=== PATIENT | male | born 1995 | race Hispanic/Latino ===

== ENCOUNTER 2021-10-31 22:59 | Emergency (ER) | payer SELFPAY ==
[2021-10-31 23:29] LABS: Urine Blood Negative (Negative); Urine Glucose Negative (Negative); Urine Protein 2+ (Negative); Urine Specific Gravity >=1.030 (1.005-1.030); Urine pH 5.5 (5.0-7.0)
[2021-11-01] MEDS ORDERED: LIDOCAINE 1% MPF 2 ML AMPULE ONE (00:43)
--- NOTE | 2021-11-01 00:43 | ER ---
Nurse's Notes [facility] Name: Kian Mckeon Age: 26 yrs Sex: Male : 1995 Arrival Date: 10/31/2021 Time: 23:00 Bed 15 Private MD: Diagnosis: Nonspecific urethritis-Possible STD exposure Presentation: 10/31 23:13 Chief complaint: Patient states: When I urinate I get discomfort and pain. Coronavirus vc1 screen: Vaccine status: Patient reports being unvaccinated. At this time, the client does not indicate any symptoms associated with coronavirus-19. Ebola Screen: No symptoms or risks identified at this time. Initial Sepsis Screen: Does the patient meet any 2 criteria? No. Patient's initial sepsis screen is negative. Does the patient have a suspected source of infection? No. Patient's initial sepsis screen is negative. Risk Assessment: Do you want to hurt yourself or someone else? Patient reports no desire to harm self or others. Onset of symptoms was October 29, 2021. 23:13 Method Of Arrival: Ambulatory vc1 23:13 Acuity: PEDRO 4 vc1 Triage Assessment: 23:14 General: Appears in no apparent distress. comfortable, Behavior is calm, cooperative, vc1 appropriate for age. Pain: Complains of pain in meatus Pain does not radiate. Pain at worst was 6 out of 10 on a pain scale. Aggravated by Urination. : Reports burning with urination, urinary frequency, Denies discharge. Historical: - Allergies: 23:14 No Known Allergies; vc1 - Home Meds: 23:14 None [Active]; vc1 - PMHx: 23:14 None; vc1 - PSHx: 23:14 None; vc1 - Immunization history:: Adult Immunizations up to date, Client reports having NOT received the Covid vaccine. Flu vaccine is not up to date. - Social history:: Smoking status: Patient denies any tobacco usage or history of. Screenin/12 01:11 Abuse screen: Denies threats or abuse. Nutritional screening: No deficits noted. mk Tuberculosis screening: No symptoms or risk factors identified. Fall Risk No fall in past 12 months (0 pts). No secondary diagnosis (0 pts). No IV (0 pts). Ambulatory Aid- None/Bed Rest/Nurse Assist (0 pts). Gait- Normal/Bed Rest/Wheelchair (0 pts) Mental Status- Oriented to own ability (0 pts). Total Craven Fall Scale indicates No Risk (0-24 pts). Assessment: 00:03 General: Appears in no apparent distress. Behavior is calm, cooperative. Pain: Denies mk pain. Neuro: Level of Consciousness is awake, alert, obeys commands, Oriented to person, place, time, situation, Ink Blender are equal bilaterally Moves all extremities. Gait is steady. Cardiovascular: Heart tones S1 S2 present Capillary refill < 3 seconds in bilateral fingers toes Clubbing of nail beds is absent JVD is absent Patient's skin is warm and dry. Pulses are 3+ in right radial artery, right dorsalis pedis artery, left radial artery and left dorsalis pedis artery Rhythm is regular. Respiratory: Airway is patent Trachea midline Respiratory effort is even, unlabored, Respiratory pattern is regular, symmetrical, Breath sounds are clear. GI: Abdomen is non-distended, Bowel sounds present X 4 quads. : Urine is Reports burning with urination, since days. Derm: Skin is intact, is healthy with good turgor. Musculoskeletal: Circulation, motion, and sensation intact. Capillary refill < 3 seconds, in bilateral fingers. toes. Range of motion: intact in all extremities. 01:00 Reassessment: No changes from previously documented assessment. Patient and/or family mk updated on plan of care and expected duration. Pain level reassessed. Patient is alert, oriented x 3, equal unlabored respirations, skin warm/dry/pink. Vital Signs: 10/31 23:13 BP 138 / 88; Pulse 98; Resp 18; Temp 98.1(TE); Pulse Ox 99% on R/A; Weight 90.72 kg; vc1 Height 5 ft. 7 in. (170.18 cm); Pain 02/27; 11/01 00:03 BP 138 / 92; Pulse 74; Resp 18; Pulse Ox 98% on R/A; mk 10/31 23:13 Body Mass Index 31.32 (90.72 kg, 170.18 cm) vc1 Yolanda Coma Score: 00:03 Eye Response: spontaneous(4). Verbal Response: oriented(5). Motor Response: obeys commands(6). Total: 15. ED Course: 10/31 23:00 Patient arrived in ED. kc5 23:14 Triage completed. vc1 23:16 Arm band placed on left wrist. vc1 23:30 Pulse ox on. NIBP on. 11/01 00:26 Bao Chapman MD is Attending Physician. mh7 00:36 Lacey Ignacio, RN is Primary Nurse. mk 01:12 No provider procedures requiring assistance completed. Patient did not have IV access mk during this emergency room visit. 01:13 Patient has correct armband on for positive identification. Allergy band placed. Placed mk in gown. Bed in low position. Side rails up X 1. Administered Medications: 00:40 Drug: Rocephin (cefTRIAXone) 500 mg Route: IM; Site: right deltoid; mk 01:13 Follow up: Response: No adverse reaction mk 00:40 Drug: AZITHromycin 1 grams Route: PO; mk 01:13 Follow up: Response: No adverse reaction mk Outcome: 00:42 Discharge ordered by . 7 01:12 Discharged to home 01:12 Condition: stable 01:12 Discharge instructions given to patient, Instructed on discharge instructions. 01:19 Patient left the ED. Signatures: Bao Chapman MD MD Lynnette Sylvester [facility] Lacey Ignacio, RN RN Nina Jimenes RN RN vc1
--- NOTE | 2021-11-01 00:43 | EDPHYS ---
Physician Documentation [facility] Name: Kina Mckeon Age: 26 yrs Sex: Male : 1995 Arrival Date: 10/31/2021 Time: 23:00 Bed 15 Private MD: ED Physician Bao Chapman HPI: 11/01 00:35 This 26 yrs old Male presents to ER via Ambulatory with complaints of Urinary mh7 Problem. 00:35 The patient presents with a possible STD exposure, symptoms include dysuria, yellow mh7 penile discharge. Onset: The symptoms/episode began/occurred 3 day(s) ago. Modifying factors: The symptoms are alleviated by nothing, the symptoms are aggravated by nothing. Associated signs and symptoms: Pertinent positives: dysuria, Pertinent negatives: abdominal pain, constipation, diarrhea, fever, hematuria, nausea, vomiting. Severity of symptoms: At their worst the symptoms were mild, 2 day(s) ago, in the emergency department the symptoms are unchanged. Historical: - Allergies: 10/31 23:14 No Known Allergies; vc1 - Home Meds: 23:14 None [Active]; vc1 - PMHx: 23:14 None; vc1 - PSHx: 23:14 None; vc1 - Immunization history:: Adult Immunizations up to date, Client reports having NOT received the Covid vaccine. Flu vaccine is not up to date. - Social history:: Smoking status: Patient denies any tobacco usage or history of. ROS: 11/01 00:35 Constitutional: Negative for fever, chills, and weight loss, Eyes: Negative for injury, mh7 pain, redness, and discharge, ENT: Negative for injury, pain, and discharge, Neck: Negative for injury, pain, and swelling, Cardiovascular: Negative for chest pain, palpitations, and edema, Respiratory: Negative for shortness of breath, cough, wheezing, and pleuritic chest pain, Abdomen/GI: Negative for abdominal pain, nausea, vomiting, diarrhea, and constipation, Back: Negative for injury and pain, MS/Extremity: Negative for injury and deformity, Skin: Negative for injury, rash, and discoloration, Neuro: Negative for headache, weakness, numbness, tingling, and seizure, Psych: Negative for depression, anxiety, suicide ideation, homicidal ideation, and hallucinations, Allergy/Immunology: Negative for hives, rash, and allergies, Endocrine: Negative for neck swelling, polydipsia, polyuria, polyphagia, and marked weight changes, Hematologic/Lymphatic: Negative for swollen nodes, abnormal bleeding, and unusual bruising. Exam: 00:35 Constitutional: This is a well developed, well nourished patient who is awake, alert, mh7 and in no acute distress. Head/Face: Normocephalic, atraumatic. Eyes: Pupils equal round and reactive to light, extra-ocular motions intact. Lids and lashes normal. Conjunctiva and sclera are non-icteric and not injected. Cornea within normal limits. Periorbital areas with no swelling, redness, or edema. Neck: Trachea midline, no thyromegaly or masses palpated, and no cervical lymphadenopathy. Supple, full range of motion without nuchal rigidity, or vertebral point tenderness. No Meningismus. Chest/axilla: Normal chest wall appearance and motion. Nontender with no deformity. No lesions are appreciated. Cardiovascular: Regular rate and rhythm with a normal S1 and S2. No gallops, murmurs, or rubs. Normal PMI, no JVD. No pulse deficits. Respiratory: Lungs have equal breath sounds bilaterally, clear to auscultation and percussion. No rales, rhonchi or wheezes noted. No increased work of breathing, no retractions or nasal flaring. Abdomen/GI: Soft, non-tender, with normal bowel sounds. No distension or tympany. No guarding or rebound. No evidence of tenderness throughout. Back: No spinal tenderness. No costovertebral tenderness. Full range of motion. Skin: Warm, dry with normal turgor. Normal color with no rashes, no lesions, and no evidence of cellulitis. MS/ Extremity: Pulses equal, no cyanosis. Neurovascular intact. Full, normal range of motion. Neuro: Awake and alert, GCS 15, oriented to person, place, time, and situation. Cranial nerves II-XII grossly intact. Motor strength 5/5 in all extremities. Sensory grossly intact. Cerebellar exam normal. Normal gait. Psych: Awake, alert, with orientation to person, place and time. Behavior, mood, and affect are within normal limits. 00:35 : CVA tenderness, is absent, Male external genitalia: Patient is not circumisioned. penile discharge, white, Bladder: is normal, Sexual behavior: the patient is sexually active, and reports multiple partners. Vital Signs: 10/31 23:13 BP 138 / 88; Pulse 98; Resp 18; Temp 98.1(TE); Pulse Ox 99% on R/A; Weight 90.72 kg; vc1 Height 5 ft. 7 in. (170.18 cm); Pain 6/10; 11/01 00:03 BP 138 / 92; Pulse 74; Resp 18; Pulse Ox 98% on R/A; mk 10/31 23:13 Body Mass Index 31.32 (90.72 kg, 170.18 cm) vc1 Marion Coma Score: 00:03 Eye Response: spontaneous(4). Verbal Response: oriented(5). Motor Response: obeys mk commands(6). Total: 15. MDM: 00:40 Differential diagnosis: UTI, urethritis, STD exposure. Data reviewed: vital signs, [facility] nurses notes, lab test result(s), urinalysis. Data interpreted: Pulse oximetry: on room air is 99 %. Interpretation: normal. Counseling: I had a detailed discussion with the patient and/or guardian regarding: the historical points, exam findings, and any diagnostic results supporting the discharge/admit diagnosis, the presence of at least one elevated blood pressure reading (>120/80) during this emergency department visit, lab results, the need for outpatient follow up, to return to the emergency department if symptoms worsen or persist or if there are any questions or concerns that arise at home. 00:42 Patient medically screened. [facility] 10/31 23:28 Order name: Urine Dipstick-Ancillary; Complete Time: 00:28 [facility] 10/31 23:30 Order name: Urine Dipstick-Ancillary (obtain specimen); Complete Time: 23:30 [facility] Administered Medications: 00:40 Drug: Rocephin (cefTRIAXone) 500 mg Route: IM; Site: right deltoid; 01:13 Follow up: Response: No adverse reaction 00:40 Drug: AZITHromycin 1 grams Route: PO; 01:13 Follow up: Response: No adverse reaction Disposition Summary: 11/01/21 00:42 Discharge Ordered Location: Home [facility] Problem: new [facility] Symptoms: have improved [facility] Condition: Stable [facility] Diagnosis - Nonspecific urethritis - Possible STD exposure [facility] Followup: [facility] - With: Private Physician - When: 1 - 2 days - Reason: Worsening of condition, Recheck today's complaints, Continuance of care, Re-evaluation by your physician Discharge Instructions: - Discharge Summary Sheet [facility] - Urethritis, Adult [facility] Forms: - Medication Reconciliation Form [facility] - Thank You Letter [facility] - Antibiotic Education [facility] - Prescription Opioid Use [facility] Signatures: Dispatcher [employer] EDBao Viera MD MD [facility] Lacey Ignacio RN RN Nina Jimenes RN RN vc1 Corrections: (The following items were deleted from the chart) 00:36 00:34 GC Culture+[id number].BRZ ordered. EDMS EDMS
[2021-11-01] MEDS ORDERED: AZITHROMYCIN 250 MG TAB ONE (00:44)
[2021-11-01] MEDS ORDERED: CEFTRIAXONE 500 MG/VIAL ONE (00:44)
[2021-11-01 01:38] VITALS: TEMP 98.1
[2021-11-01 01:40] VITALS: BP 138/92; O2SAT 98
== END 2021-11-01 01:19 | disposition home or self-care (01) ==
LOC: ER 22:59
DX: N34.1 Nonspecific urethritis (principal)
CPT/HCPCS: 81003; 96372; 99283; J0696